=== PATIENT | male | born 1980 | race Caucasian/White ===

== ENCOUNTER 2020-02-07 10:55 | Outpatient (CLI) | payer SELFPAY ==
--- NOTE | 2020-02-07 10:58 | ECG_ITS ---
Measurements Intervals [place] Rate: 82 P: 41 VT: 142 QRS: 40 QRSD: 95 T: 23 QT: 324 QTc: 380 Interpretive Statements SINUS RHYTHM PEAKED T WAVES- CONSIDER HYPERKALEMIA ABNORMAL ECG Electronically Signed On 02-07-2020 13:49:45 [employer] by Nilo Tse D.O.
== END 2020-02-07 10:56 | disposition home or self-care (01) ==
PROVIDERS: PCP Family Medicine; Visit Provider Orthopaedic Surgery
DX: Z01.818 Encounter for other preprocedural examination (principal); E78.00 Pure hypercholesterolemia, unspecified; R94.31 Abnormal electrocardiogram [ECG] [EKG]
CPT/HCPCS: 93005

== ENCOUNTER 2020-02-10 00:50 | Outpatient (CLI) | payer SELFPAY ==
[2020-02-10 18:38] LABS: SARS-CoV-2 RNA PCR Negative
== END 2020-02-10 00:51 | disposition home or self-care (01) ==
LOC: ANHCOVIDDT 00:50
PROVIDERS: PCP Family Medicine; Visit Provider Orthopaedic Surgery
DX: Z01.818 Encounter for other preprocedural examination (principal); Z20.828 Contact with and (suspected) exposure to other viral communicable diseases
CPT/HCPCS: C9803; U0003

== ENCOUNTER 2020-02-13 01:55 | Day surgery (SDC) | payer OTHER, SELFPAY ==
[2020-02-06 10:08] VITALS: BMI 26.2
[2020-02-13] VITALS (7 sets, daily range): BP systolic 141–163; BP diastolic 88–99; PULSE 84–107; RESP 14–18; TEMP 36.2–36.8; O2SAT 96–100
--- NOTE | 2020-02-13 08:11 | WPDANESEPPF ---
Anes - Initial Pre Proc Eval Procedure: Operation Date: 02/13/20 10:30 Proposed Procedures p Right Knee Arthroscopic Meniscectomy - Memo Drew MD Date/Time: 02/13/20 08:11 Surgeon: Memo Drew MD Pre Op Diagnosis: Right Knee Medial Meniscus Patient Data Age: 39 Gender: M Height: 1.77 m Weight: 81.65 kg Allergies Allergy/AdvReac Type Severity Reaction Status Date / Time No Known Allergies Allergy Verified 02/06/20 09:47 Home Medications Medication Instructions Recorded Confirmed Type atorvastatin 80 mg PO DAILY 12/24/18 02/06/20 History omeprazole 40 mg capsule,delayed 40 mg PO DAILY cap 08/02/19 02/06/20 History release methocarbamol 750 mg tablet See Rx Instructions .ROUTE 01/16/20 02/06/20 Rx .COMPLEX #90 tablet aspirin [Adult Low Dose Aspirin] 81 mg PO DAILY 02/06/20 02/06/20 History ibuprofen 800 mg PO Q6H PRN 02/06/20 02/06/20 History oxycodone-acetaminophen 7.5 mg-325 1 tablet PO PRN PRN #150 tablet 02/07/20 Rx mg tablet Patient hx anesthesia problems: none Family hx anesthesia problems: none PMFSH Past Medical History Medical History (Updated 02/13/20 @ 08:42 by Mars Headley DO) BMI 25.0-25.9,adult Carpal tunnel syndrome Chronic, continuous use of opioids 4-5 7.5mg percocets daily Degenerative, intervertebral disc, cervical GERD (gastroesophageal reflux disease) Hyperlipidemia Other intervertebral disc degeneration, lumbar region Raynaud disease Thoracic degenerative disc disease Tobacco abuse Surgical History Surgical History Hx of left knee surgery arthroscopic meniscectomy Family History Family History Mother Family history of diabetes mellitus in first degree relative Grandparent Family history of coronary artery disease Other Cerebrovascular accident Family history of malignant neoplasm Hypertension Social History Social History Smoking packs per day: 0.5 Smoking cigarettes per day: 10.0 Years smoked: 10 Smoking pack-years: 5.00 Smoking status: Current every day smoker Tobacco type: cigarettes Alcohol intake: current Drinks per week: 6 Living arrangements: with family Gender identity (if verbalized by the patient): Male Spiritual care concerns: No Anes - Eval Final PreProcedure Day of Procedure 02/13/20 08:11 Patient weight: overweight Heart: regular rate and rhythm Lungs: clear to auscultation and normal air movement Airway: Mallampati scale class II Neurological: alert and oriented Last oral intake: >/= 8 hours ASA classification: III Emergent: no Anesthetic plan: proceed Anesthesia type and monitoring: general LMA and standard monitoring Informed Consent: The patient's anesthetic plan and its attendant risks and benefits were discussed with the patient/family/POA. Questions were solicited and answers provided to the satisfaction of the patient/family/POA.
[2020-02-13] MEDS: LACTATED RINGERS 1,000 ML 30 ML IV CONT ×2 (09:15→10:54)
[2020-02-13] MEDS: KETOROLAC 15 MG/ML VIAL (*BKC) IV PUSH (09:21)
--- NOTE | 2020-02-13 09:33 | WPDHPUPDATE1 ---
History and Physical Update Update Date/Time: 02/13/20 09:33 History and Physical has been reviewed, including an updated exam of the patient. There are NO changes in the patient's condition. Risks, benefits, and alternatives have been discussed and questions answered. Patient agrees to proceed with procedure.
[2020-02-13] MEDS: ceFAZolin 2 GM/D5W 50 ML 2 GM/50 ML BAG IVPB (09:57)
--- NOTE | 2020-02-13 09:57 | WPDANESPNB ---
Anes - Peripheral Nerve Block Date/Time: 02/13/20 09:57 I have discussed with the patient/family/POA the placement of a peripheral nerve block for post-operative pain management, including associated risks, benefits, complications, and side effects. Alternative methods of post-operative analgesia were detailed. Questions were solicited and answers provided to the satisfaction of the patient/family/POA. Time-Out: A pre-procedural Time-Out was completed immediately before starting the procedure and confirmed: Patient Identification, Site, Procedure, Patient Position and the Availability of Requisite Equipment. Clinical Indications: Acute post-operative pain management requested by the operative surgeon. Nerve Block Insertion Note Anes-nerve block: adductor canal right Patient position: supine Skin prep: chlorhexidine Needle: 22 gauge, stimulating, insulated echogenic needle. Needle length: 80 mm Technique: ultrasound Injectate: bupivacaine 0.5% with epi 5 mcg/ml (30cc) Observations: tolerated well Complications: none Procedure start time:: 952 Procedure end time:: 955
[2020-02-13] MEDS: LIDO 1%/EPINEPHRINE 1:100,000 50 ML VIAL 30 ML INFILTRATE (10:12)
--- NOTE | 2020-02-13 10:58 | P.OP_ITS ---
Procedure Note - Detailed Date of procedure: 02/13/20 Pre-op diagnosis: Right Knee Medial Meniscus Right knee medial meniscal tear Post-op diagnosis: same Procedure performed: Right knee arthroscopy with partial medial meniscectomy Description of procedure: The patient was identified and proper site identified. He was taken to the operating room and transferred to the OR table placing her supine taking care to pad the torso and extremities. After general anesthetic induction and intubation, a nonsterile tourniquet was placed high on the right thigh but was not used. The right lower extremity was positioned, prepped and draped in usual sterile fashion. 10 cc of 1% lidocaine was injected into the subcutaneous tissue in the area of the portals at start of the procedure, and an additional 10 at the end. The portals were established and the arthroscopy was carried out. Articular cartilage in the anterior lateral compartments was in excellent condition. There was minimal fraying of the lateral meniscus. Anterior and posterior cruciate ligaments were in continuity. There was a bit of a Hoffa pad type of anterior impingement going on in this area was debrided with the shaver along for visualization of the medial compartment. There was extensive grade 2 changes along the medial femoral condyle in an area where a plica was rubbing over this. Plica was resected and hemostasis carried out with the ArthroCare Wand. There is complex tearing of the medial meniscus from the posterior horn and the midbody with displaced fragments into the gutter. The degenerative meniscus was contoured back to s table rim with basket forceps and a shaver. The knee was flushed with a copious amount of arthroscopic fluid and equipment was removed. Portals were closed with three O nylon suture and a sterile dressing was applied. He tolerated the procedure well, was awakened, extubated and taken to recovery area in stable condition. There were no known intraoperative complications. Estimated blood loss was negligible. He received perioperative antibiotics. Anesthesia: GLMA Surgeon: Memo Drew MD Estimated blood loss (mL): 10 Tourniquet time (min): 0 Drains: No Packing: No Pathology: none sent Complications: No immediate complications Condition: stable Disposition: PACU
[2020-02-13] MEDS: oxyCODONE HCL (*CRX) 5 MG TAB IR PO (11:57)
== END 2020-02-13 12:35 | disposition home or self-care (01) ==
PROVIDERS: PCP Family Medicine; Visit Provider Orthopaedic Surgery
PROC: (CPT 29870; principal; 2020-02-13 10:30)
DX: M23.331 Other meniscus derangements, other medial meniscus, right knee (principal); G89.18 Other acute postprocedural pain; E78.5 Hyperlipidemia, unspecified; K21.9 Gastro-esophageal reflux disease without esophagitis; M51.36 Other intervertebral disc degeneration, lumbar region; M51.34 Other intervertebral disc degeneration, thoracic region; Z79.891 Long term (current) use of opiate analgesic; F17.210 Nicotine dependence, cigarettes, uncomplicated
CPT/HCPCS: 29881; 64447; A9270; J0690; J1100; J1885; J2250; J2405; J2704; J3010; J7120

== ENCOUNTER 2020-03-27 14:30 | Outpatient (RCR) | payer OTHER, SELFPAY ==
--- NOTE | 2020-01-12 15:07 | PTOPEVAL ---
PHYSICAL THERAPY EVALUATION AND PLAN OF CARE 01-12-2020 Thank you for referring Robi Abreu to [facility].? He is scheduled to be seen for therapy? 2 x/week for 3 weeks. Please review, sign, date and return this plan of care REN. I agree with and certify that the following plan of care is medically necessary. Referring Physician Date Attending Provider: Memo Drew MD PT Outpatient Evaluation Document 01/12/20 14:05 KAYLEIGH (Rec: 01/12/20 15:03 KAYLEIGH [id number]) Outpatient Past Medical History Past Medical History Source of Past Medical History Patient Neurological History Hx Neurological Disorders No Significant History Cardiovascular History Hx Hypercholesterolemia Yes: meds Respiratory History Hx Other Respiratory Disorders Yes: smoker Gastrointestinal History Hx Gastrointestinal Disorders No Significant History Genitourinary History Hx Genitourinary Disorders No Significant History Musculoskeletal History Hx Back Pain Yes: chronic pain in neck, thoracic and lumbar-DDD Hx Degenerative Disk Disease Yes: neck and back Hx Orthopedic Surgery Yes: L knee arthroscopy 2018; L carpal tunnel release Hematological History Hx Hematological Disorders No Significant History Endocrine History Hx Endocrine Disorders No Significant History HEENT History Hx HEENT Disorders No Significant History Evaluation Information Problem Diagnosis R medial meniscus tear Onset Dec 09, 2019 Subjective Information jumped out of van, landed on R Query Text:As Reported By Patient/ leg, felt pinch in R knee, Family then worse throughout the day; by end of day- knee and foot swollen; had injection yesterday at dr visit, not tell any changes in pain yet; not worked since above; initially used cane and immobilizer on knee PRN; per pt-Dr Drew instructed him to start walking and doing more as tolerated; may require knee surgery if not better after PT; Diagnostic Tests X-Rays For This Problem Yes: mild deg changes, decreased joint space MRI For This Problem Yes: at [facility]-per pt- MCL and med meniscal tear Previous Treatments Previous Treatments For This Problem no PT since Oct injury; Prior Level of Function Activity Level (Last 3 Months) Occupation [employer], active Activity of Daily Living Ability
--- NOTE | 2020-01-30 11:55 | PTOPEVAL ---
PHYSICAL THERAPY RE- EVALUATION 01-30-2020 Refer to the clinical summary below for a comparison to the initial evaluation. Robi has a follow up appointment this week. If PT is to continue, please give him a new script. Thank you for referring Robi Abreu to [facility].? Please review, sign, date and return this reevaluation report REN. I agree with and certify that the following plan of care is medically necessary. Referring Physician Date Attending Provider: Memo Drew MD PT Outpatient Re-Evaluation Document 01/30/20 11:17 KAYLEIGH (Rec: 01/30/20 11:50 KAYLEIGH [id number]) Subjective Information Robi reports: knee is better- Query Text:As Reported By Patient/ walking and stairs are better Family , still having pain- pressure and pinching in knee; some burning pain in knee also; has continued to be off work, but walking and trying to be more active; to see Dr in 2 days; Pain Assessment Timing of Pain Assessment Timing of Pain Assessment Assessment Pain Scale Pain Scale Used Numeric (1 - 10) Self Report Pain Assessment Right Knee(s) Reported Pain Level 5 Pain Description Burning,Pinching,Pressure, Tightness Pain Frequency Acute,Chronic Lowest Pain Intensity 3 Greatest Pain Intensity 7 Pain Aggravating Factors Walking,Weight Bearing/ Standing Other Pain Aggravating Factors walking tolerance about 30-40 min; self assessment WOMAC 36% limitation Pain Score Pain Score 5: Self Report Additional Pain Score Comments with sleeping awaken 1-2 x/ week due to knee pain; leukotape over medial knee- instruct and educated pt on taping; he has kinesiotape at home, discussed application with kinesiotape and leukotape ; also reports L knee pain; Interventions Used Interventions Used By Clinicians Exercise,Taping Pain Relief Interventions Used By Ice,Inactivity/Rest Patient Other Alleviating Interventions CBD oil, compression knee sleeve Lower Extremity Range of Motion General Lower Extremity Range of Motion Gross Lower Extremity Range of Motion sitting knee extension 0' no Comments increase pain/ flexion 130'- increase pressure over knee- medial, but not pain; supine
--- NOTE | 2020-02-16 15:54 | PTOPEVAL ---
PHYSICAL THERAPY RE-EVALUATION and UPDATED PLAN OF CARE 02-16-2020 The reevaluation was performed today, for the new diagnosis of s/p R knee arthroscopy. His plan of care has been updated with new goals. He is scheduled for therapy 2x/week for 4 weeks. Thank you for referring Robi Abreu to [facility].? Please review, sign, date and return this plan of care REN. I agree with and certify that the following plan of care is medically necessary. Referring Physician Date Attending Provider: Memo Drew MD Document 02/16/20 15:00 KAYLEIGH (Rec: 02/16/20 15:53 KAYLEIGH [id number]) Assessment Status Re-evaluation Re-Evaluation Information Problem Diagnosis s/p R knee arthroscopy 2020 Subjective Information since surgery, been resting Query Text:As Reported By Patient/ knee, using ice and elevation; Family have been some leg exercises- leg lifts, moving leg to side ; used crutches, then cane and yesterday without cane in home; Pain Assessment Timing of Pain Assessment Timing of Pain Assessment Assessment Pain Scale Pain Scale Used Numeric (1 - 10) Self Report Pain Assessment Right Knee(s) Reported Pain Level 6 Pain Description Aching,Sharp Pain Frequency Acute Other Pain Description all over knee Lowest Pain Intensity 5 Greatest Pain Intensity 8 Pain Aggravating Factors Prolonged Position,Walking, Weight Bearing/Standing Additional Pain Comments since surgery, sleeping schedule has been all off- pain and off sleep cycle Pain Score Pain Score 6: Self Report Interventions Used Interventions Used By Clinicians Exercise Pain Relief Interventions Used By Ice,Inactivity/Rest,Medication Patient Other Alleviating Interventions his normal pain meds and ibuprofen Lower Extremity Range of Motion General Lower Extremity Range of Motion Gross Lower Extremity Range of Motion sitting R knee active 0'- 95'; Comments increase pain at both end ranges of flex & ext Lower Extremity Muscle Strength Testing General Lower Extremity Strength Gross Lower Extremity Strength supine: R LE: SLR and hip abduction x 10 reps,with reports increase pain and burning of knee; HEP issued and instructed: supine SLR, side lying hip abduction, prone knee flexion
--- NOTE | 2020-02-29 12:59 | PCPTNOTE ---
Patient did not show up for scheduled appointment this date. Called and had to leave a message.
--- NOTE | 2020-03-05 10:06 | PCPTNOTE ---
Patient did not show up for scheduled appointment this date. Called and patient stated he was sorry, but I forgot.
--- NOTE | 2020-03-15 13:19 | PTOPEVAL ---
PHYSICAL THERAPY RE-EVALUATION AND UPDATED PLAN OF CARE 03-15-2020 Refer to the clinical summary below, for his status compared to the last reevaluation. Thank you for referring Robi Abreu to [facility].? Robi is scheduled to continue therapy? 2 x/week for 2 weeks. Please review, sign, date and return this updated plan of care REN. I agree with and certify that the following plan of care is medically necessary. Referring Physician Date Attending Provider: Memo Drew MD 03/15/20 12:30 KAYLEIGH (Rec: 03/15/20 13:19 KAYLEIGH [id number]) Assessment Status Re-evaluation Subjective Information Robi reports: knee is better; Query Text:As Reported By Patient/ able to do everything he Family usually does at home, able to walk dogs about 1 mile; been doing exercises and return to dr in 2 weeks, supposed to continue therapy until then; Pain Assessment Timing of Pain Assessment Timing of Pain Assessment Assessment Pain Scale Pain Scale Used Numeric (1 - 10) Self Report Pain Assessment Right Knee(s) Reported Pain Level 4 Pain Frequency Chronic Lowest Pain Intensity 3 Greatest Pain Intensity 6 Pain Score Pain Score 4: Self Report Additional Pain Score Comments also has pain in L knee and back; Interventions Used Interventions Used By Clinicians Education Pain Relief Interventions Used By Elevation,Ice,Inactivity/Rest, Patient Medication Other Alleviating Interventions ibuprofen PRN; report some swelling at the end of the day Lower Extremity Range of Motion General Lower Extremity Range of Motion Gross Lower Extremity Range of Motion R knee active ROM 0-140' Comments without an increase in pain with active motion Lower Extremity Muscle Strength Testing General Lower Extremity Strength Gross Lower Extremity Strength single leg press: max for 3 reps R 100#/ L 110#;; single leg standing R 30 + sec with good stability; B UE Lift floor/waist max for 3 reps: 30# with good lifting technique, reported increase sharp pain in knee, to 6/10 with squat to lift; with 4# ankle wt: SLR x 40 reps; side lying hip abduction x 25 reps; hip adduction x 20 reps; -simulated job tasks: -- kneeling: on foam pad,
--- NOTE | 2020-03-27 15:03 | PTOPEVAL ---
PHYSICAL THERAPY DISCHARGE 03-27-20 Refer to the clinical summary below for his status compared to the last reevaluation. Thank you for referring Robi Abreu to [facility].? Please review, sign, date and return this discharge REN. I agree with and certify that the following plan of care is medically necessary. Referring Physician Date Attending Provider: Memo Drew MD Document 03/27/20 14:32 KAYLEIGH (Rec: 03/27/20 15:03 KAYLEIGH [id number]) Assessment Status Discharge Subjective Information Robi reports: doing exercises Query Text:As Reported By Patient/ , doing more activity at home, Family continues to use ice for pain , feel ready to go back to work, going to get knee pads for kneeling, agrees to discharge from PT. Pain Assessment Timing of Pain Assessment Timing of Pain Assessment Assessment Pain Scale Pain Scale Used Numeric (1 - 10) Self Report Pain Assessment Right Knee(s) Reported Pain Level 3 Pain Description Aching,Burning Pain Frequency Chronic,Continuous Other Pain Description medial patella- distal aspect; Lowest Pain Intensity 3 Greatest Pain Intensity 5 Pain Aggravating Factors Weight Bearing/Standing Other Pain Aggravating Factors kneeling Pain Score Pain Score 3: Self Report Additional Pain Score Comments self assessment with the WOMAC of 17% limitation in activity Interventions Used Interventions Used By Clinicians Exercise Lower Extremity Range of Motion General Lower Extremity Range of Motion Gross Lower Extremity Range of Motion R knee active ROM 0-145' Comments without an increase in pain Lower Extremity Muscle Strength Testing General Lower Extremity Strength Gross Lower Extremity Strength B UE lift, floor/waist height 50# x 5 reps; with the full squat had pain, but did not last, only with squat it hurt more; carry box with B UE, 40# up/ down 24 steps, report increase burn in knee, but stop shortly after activity stopped ; kneeling on B knees, onto foam , simulated job tasks of wt shift R/L, reach with UE's, 8 minutes; Palpation Assessment Palpation Palpation tenderness over medial joint line Extremity Circumference Assessment Circumference Assessment
== END 2020-03-28 09:14 | disposition home or self-care (01) ==
LOC: ANHPT 14:30
PROVIDERS: PCP Family Medicine; Visit Provider Orthopaedic Surgery
DX: M23.203 Derangement of unspecified medial meniscus due to old tear or injury, right knee (principal); M25.561 Pain in right knee; M25.461 Effusion, right knee
CPT/HCPCS: 97014; 97110; 97140; 97161; G0283

== ENCOUNTER 2021-07-09 07:37 | Outpatient (CLI) | payer OTHER, SELFPAY ==
--- NOTE | 2021-07-15 11:27 | WPDHOMESLEEP ---
Sleep Study - Home Unattended Date of Study: 07/09/21 Ordering Provider: Taran Mahan MD Interpreting Provider: Carola Markham MD Home Sleep Study Type: Watch PAT Height: 1.75 m Weight: 81.647 kg Body Mass Index: 26.6 Neck Circumference (inches): 15.5 Ewing: 17 Reason for Sleep Study Poor quality sleep, hypersomnolence Sleep History Robi Abreu is a 41-year-old man who complains of feeling tired all the time. He falls asleep easily after eating, and may sleep a few hours however he never feels rested after sleeping. He wakes up throughout the night. He occasionally wakes up from sleep feeling short of breath. He rarely awakens at night with heartburn, belching or coughing. He frequently snores loudly enough that others complain about it. He frequently has trouble sleeping with a cold. He occasionally has breathing problems at night observed by others. He occasionally sweats excessively at night and notices his heart pounding or beating irregularly at night. He rarely falls asleep during the day, rarely falls asleep involuntarily however he does rarely fall asleep while driving. He does not have loss of muscle tone with strong emotion. He occasionally has daytime difficulties due to excessive sleepiness. He occasionally feels paralyzed on waking or falling asleep and occasionally has vivid dreamlike scenes upon awakening or falling asleep. Does not feel afraid to go to sleep. He occasionally has nightmares. Occasionally remembers his dreams. He frequently has racing thoughts. He occasionally feels sad or depressed. He frequently has anxiety. He frequently has muscular tension frequently notices parts of his body jerking. He occasionally kicks at night. He frequently has crawling aching feelings in his legs and leg pain during the night. He frequently has morning jaw pain and frequently grinds his teeth during sleep. He frequently is bothered by pain during the day and awakened by pain at night. He frequently wakes up feeling stiff in the morning with sore achy muscles and pain in the neck and spine. He has headaches, nightmares, fatigue, memory problems. Normal bedtime 11:00 p.m. falling asleep instantly waking up 3 times at night for unclear reasons. He will stare at the ceiling, watch television. It is difficult for him to fall asleep but sometimes he is able to return to sleep within 1/2 hour. He wakes the morning at 6:00 a.m.. He estimates getting between for 5 hours of sleep at night. His weekend schedule is similar, bedtime is 11:00 p.m. and wake up at 7:00 a.m.. He generally does not take naps. A short nap lasting 10 or 15 minutes may be refreshing. He is drowsy in the morning for 3 hours or longer. Feels better in the afternoon compared to other times of day Habits: Tobacco 1 pack per day. Caffeine 2-3 servings per day. Alcohol 2-3 servings a day. No recreational drugs. [facility] Past Medical History Medical History Alcohol abuse Anxiety Apnea Back muscle spasm BMI 25.0-25.9,adult BMI 26.0-26.9,adult BMI 27.0-27.9,adult Carpal tunnel syndrome Cellulitis of hand Chronic, continuous use of opioids 4-5 7.5mg percocets daily Degenerative, intervertebral disc, cervical Essential hypertension GERD (gastroesophageal reflux disease) Hyperlipidemia Loss of voice Other intervertebral disc degeneration, lumbar region Raynaud disease Spasm of thoracic back muscle Thoracic degenerative disc disease Tobacco abuse Surgical History Surgical History Hx of left knee surgery arthroscopic meniscectomy Right knee meniscal tear Right knee arthroscopy with partial medial meniscectomy February 2020 Family History Family History Mother Family history of diabetes mellitus in first degree relative Grandparent Family history of coronary artery dise
[2021-07-15 12:50] VITALS: BMI 26.6
== END 2021-07-10 11:06 | disposition home or self-care (01) ==
LOC: ANHCSM 07:37
PROVIDERS: PCP Family Medicine; Visit Provider Family Medicine
DX: G47.00 Insomnia, unspecified (principal); G47.33 Obstructive sleep apnea (adult) (pediatric)
CPT/HCPCS: 95800